=== PATIENT | female | born 1960 | race Caucasian/White ===

== ENCOUNTER → 2021-11-27 | Outpatient (CLI) | payer BC ==
[~2021-11-27] MED LIST: AMLODIPINE BESY10 MG PO; BUSPAR 5MG TABLE5 MG PO; CEFUROXIME500 MG PO; FLAGYL500 MG PO; IBUPROFEN600 MG PO; KEFLEX CAP 500500 MG PO; LEVAQUIN750 MG PO; LISINOPRIL-HCT1 EAC1 PO; LORTAB 5-325 M1 EACH PO; MULTI-VITAMIN1 EACH PO; SINGULAIR10 MG PO; TENORMIN 50 MG50 MG PO; TRICOR145 MG PO; WELLBUTRIN XL300 M1 PO
[2021-11-27 12:24] LABS: HEMOGLOBIN 11.5 gm/dl (12.3-15.3); RED BLOOD COUNT 3.69 M/UL (4.00-5.10); WHITE BLOOD COUNT 5.6 K/UL (4.5-11.0)
[2021-11-28 09:27] LABS: ANTISTREPTOLYSIN O AB <20.0 IU/mL (0.0-200.0); RHEUMATOID ARTHRITIS FACTOR 10.6 IU/mL (<14.0); VITAMIN D, 25-HYDROXY 39.8 ng/mL (30.0-100.0)
[2021-11-29 09:15] LABS: CREATININE, URINE 97.6 mg/dL (Not Estab.)
== END ==
LOC: LAB 10:57
PROVIDERS: Nurse Practitioner Family
DX: Z13.1 Encounter for screening for diabetes mellitus (principal); M25.50 Pain in unspecified joint; R73.9 Hyperglycemia, unspecified; I10 Essential (primary) hypertension; E78.5 Hyperlipidemia, unspecified; E55.9 Vitamin D deficiency, unspecified; E53.8 Deficiency of other specified B group vitamins; Z00.00 Encounter for general adult medical examination without abnormal findings
CPT/HCPCS: 36415; 80053; 80061; 81001; 82043; 82570; 82607; 83036; 84439; 84443; 84550; 85025; 85652; 86038; 86060; 86140; 86141; 86431

== ENCOUNTER → 2021-12-04 | Outpatient (CLI) | payer BC ==
[2021-12-05 11:14] LABS: IRON BIND.CAP.(TIBC) 444 ug/dL (250-450); IRON SATURATION 27 % (15-55); IRON, SERUM 118 ug/dL (27-139); UIBC 326 ug/dL (118-369)
== END ==
LOC: LAB 12:12
PROVIDERS: Nurse Practitioner Family
DX: R53.83 Other fatigue (principal); R06.02 Shortness of breath; M54.50 Low back pain, unspecified; D64.9 Anemia, unspecified; M47.816 Spondylosis without myelopathy or radiculopathy, lumbar region
CPT/HCPCS: 36415; 71046; 72100; 82728; 83540; 83550; 83880

== ENCOUNTER → 2022-01-02 | Outpatient (CLI) | payer BC | LOC: US 08:30 → NM 09:00 | DX: N18.30 Chronic kidney disease, stage 3 unspecified (principal); R06.02 Shortness of breath; R68.89 Other general symptoms and signs; R60.0 Localized edema | CPT/HCPCS: 78452; 93017; A9502; J2785 ==

== ENCOUNTER → 2022-02-21 | Outpatient (CLI) | payer BC | LOC: HEART 5 02-15 10:00 | DX: R06.02 Shortness of breath (principal); R42 Dizziness and giddiness; R68.89 Other general symptoms and signs; Z87.891 Personal history of nicotine dependence | CPT/HCPCS: 93306; 94060; 94729 ==

== ENCOUNTER → 2022-03-05 | Outpatient (CLI) | payer BC | LOC: LAB 10:55 | PROVIDERS: Nurse Practitioner Family | DX: I12.9 Hypertensive chronic kidney disease with stage 1 through stage 4 chronic kidney disease, or unspecified chronic kidney disease (principal); N18.30 Chronic kidney disease, stage 3 unspecified | CPT/HCPCS: 36415; 80048; 81001; 84550 ==